=== PATIENT | female | born 1950 | race Two or more races ===

== ENCOUNTER 2017-12-30 11:53 | Emergency (ER) | payer MEDICARE, MEDICAID ==
[~2017-12-30] VITALS: Ht 160 cm; Wt 66.7 kg
[2017-12-30 13:26] VITALS: BP 139/67
[2017-12-30] MEDS ORDERED: IBUPROFEN 800 MG TAB PO ONE ×2 (15:00→15:15)
[2017-12-30] MEDS ORDERED: BACITRACIN TOP OINT 1 UD PKG TOP ONE (15:00)
== END 2017-12-30 16:30 | disposition home or self-care (01) ==
LOC: ER 11:59
DX: S61.215A Laceration without foreign body of left ring finger without damage to nail, initial encounter (principal); G50.0 Trigeminal neuralgia; Z88.6 Allergy status to analgesic agent; Z91.018 Allergy to other foods; Z90.49 Acquired absence of other specified parts of digestive tract; Z90.710 Acquired absence of both cervix and uterus; Z90.89 Acquired absence of other organs; W23.0XXA Caught, crushed, jammed, or pinched between moving objects, initial encounter; Y93.89 Activity, other specified; Y99.8 Other external cause status; Y92.89 Other specified places as the place of occurrence of the external cause
CPT/HCPCS: 73130

== ENCOUNTER 2018-04-02 15:40 | Emergency (ER) | payer OTHER, MEDICAID ==
[~2018-04-02] VITALS: Ht 162.6 cm; Wt 68.3 kg
[2018-04-02 17:16] VITALS: BP 115/69
== END 2018-04-02 17:25 | disposition home or self-care (01) ==
LOC: ER 15:42
DX: L03.115 Cellulitis of right lower limb (principal); F17.210 Nicotine dependence, cigarettes, uncomplicated; Z88.5 Allergy status to narcotic agent; Z90.49 Acquired absence of other specified parts of digestive tract; Z90.710 Acquired absence of both cervix and uterus
CPT/HCPCS: 93971